=== PATIENT | female | born 1975 | race Caucasian/White ===

== ENCOUNTER 2018-11-13 10:56 | Day surgery (SDC) | payer BC ==
[2018-11-13] MEDS ORDERED: MIDAZOLAM 1 MG/ML 2 ML INJ ×2 (12:40)
[2018-11-13] MEDS ORDERED: FENTAnyl 50 MCG/ML VIAL (12:40)
== END 2018-11-13 13:59 | disposition home or self-care (01) ==
LOC: GIL 10:56
DX: K64.8 Other hemorrhoids (principal); Z86.010 Personal history of colon polyps
CPT/HCPCS: 45378; 84703